=== PATIENT | male | born 1955 | race Caucasian/White ===

== ENCOUNTER 2021-09-06 12:29 | Inpatient (IN) | payer MEDICARE ==
[~2021-09-06] VITALS: Ht 167.6 cm; Wt 82.1 kg
[2021-09-06] VITALS (17 sets, daily range): BP systolic 73–122; BP diastolic 52–86
[2021-09-06 13:23] LABS: BASOPHILS # (AUTO) 0.1 (0.0-0.1); BASOPHILS % 0.6 % (0.0-1.0); EOSINOPHILS # (AUTO) 0.1 (0.0-0.4); EOSINOPHILS % 0.7 % (0.0-6.0); HEMOGLOBIN 15.4 g/dL (14.0-18.0); LYMPHOCYTES # (AUTO) 2.2 (1.0-3.2); LYMPHOCYTES % 18.2 % (18.0-39.1); MEAN CORPUSCULAR HEMOGLOBIN 28.7 pg (28-32); MEAN CORPUSCULAR HGB CONC 32.8 g/dL (31-35); MEAN CORPUSCULAR VOLUME 87.7 fL (81-99); MONOCYTES # (AUTO) 1.4 (0.2-0.8); MONOCYTES % 11.6 % (4.4-11.3); NEUTROPHILS # (AUTO) 8.2 (2.1-6.9); NEUTROPHILS % 68.1 % (38.7-80.0); PLATELET COUNT 166 x10e3/uL (140-360); RED BLOOD COUNT 5.36 x10e6/uL (4.3-5.7); RED CELL DISTRIBUTION WIDTH 13.4 % (11.7-14.4)
[2021-09-06 13:34] LABS: INR 0.96; PROTHROMBIN TIME 13.5 seconds (11.9-14.5)
[2021-09-06 13:35] LABS: PARTIAL THROMBOPLASTIN TIME 26.2 seconds (23.8-35.5)
[2021-09-06 13:44] LABS: ALBUMIN 3.8 g/dL (3.5-5.0); ALBUMIN/GLOBULIN RATIO 1.1 (0.8-2.0); ANION GAP 13.8 mmol/L (8-16); CALCIUM 8.7 mg/dL (8.4-10.2); CREATININE, SERUM 1.08 mg/dL (0.72-1.25); POTASSIUM 4.8 mmol/L (3.5-5.1)
[2021-09-06 13:51] LABS: CREATINE KINASE MB 5.2 ng/mL (0-5.0)
[2021-09-06] MEDS ORDERED: ASPIRIN 81 MG CHEW TAB ONE (14:13)
[2021-09-06] MEDS ORDERED: CLOPIDOGREL BISULFATE 75 MG TAB ONE ×3 (14:13→15:14)
[2021-09-06] MEDS ORDERED: ASPIRIN 81 MG CHEW TAB PO ONE (14:15)
[2021-09-06] MEDS ORDERED: HEPARIN SOD (PORCINE) 1000 UNIT/ML 30ML ONE (14:16)
[2021-09-06] MEDS ORDERED: MIDAZOLAM HCL 2 MG/2 ML VIAL ONE (14:17)
[2021-09-06] MEDS ORDERED: SODIUM CHLORIDE 0.9% 1000ML 1,000 ML ONE (14:17)
[2021-09-06] MEDS ORDERED: IOPAMIDOL 370 MG/ML 200 ML INFUS..BTL INJ ONE (14:17)
[2021-09-06] MEDS ORDERED: LIDOCAINE HCL 2% LOCAL 20 ML VIAL ONE (14:17)
[2021-09-06] MEDS ORDERED: HEPARIN SOD/SOD CHLORIDE 2,000 ML ONE (14:17)
[2021-09-06] MEDS ORDERED: NITROGLYCERIN/D5W 200 MCG/ML 250 ML ONE (14:17)
[2021-09-06] MEDS ORDERED: FENTANYL CITRATE/PF 100MCG/2 ML INJ ONE (14:17)
[2021-09-06] MEDS ORDERED: EPTIFIBATIDE 75mg 100ML 0 ML ONE (14:36)
[2021-09-06] MEDS ORDERED: EPTIFIBATIDE 0 ML ONE (14:36)
[2021-09-06] MEDS ORDERED: SODIUM CHLORIDE 0.9% 50ML 50 ML ONE (14:36)
[2021-09-06] MEDS ORDERED: BIVALRIUDIN 250 MG/VIAL VIAL IV ONE (14:36)
[2021-09-06] MEDS ORDERED: ONDANSETRON HCL INJ 2MG/ML 2ML 2 MG/ML VIAL IV PRN (16:15)
[2021-09-06] MEDS ORDERED: ACETAMINOPHEN 325 MG TAB PO PRN (16:15)
[2021-09-06] MEDS: SODIUM CHLORIDE 0.9% 1000ML 1,000 ML IV SCH (16:23)
[2021-09-06] MEDS: METOPROLOL TARTRATE 25 MG TAB PO SCH (16:25)
[2021-09-06] MEDS ORDERED: GLIMEPIRIDE2 MG PO (16:41)
[2021-09-06] MEDS ORDERED: ATENOLOL50 MG PO (16:41)
[2021-09-06] MEDS ORDERED: ATORVASTATIN CA20 MG PO (16:41)
[2021-09-06] MEDS ORDERED: AMBIEN10 MG PO (16:41)
[2021-09-06] MEDS ORDERED: ABILIFY5 MG PO (16:41)
[2021-09-06] MEDS ORDERED: XANAX0.25 MG PO (16:41)
[2021-09-06] MEDS ORDERED: ZOLOFT100 MG PO (16:41)
[2021-09-06 19:31] LABS: CLARITY,URINE SL CLOUDY (CLEAR); COLOR,URINE AMBER (YELLOW); KETONES,URINE NEGATIVE (NEGATIVE); LEUKOCYTE ESTERASE ,URINE NEGATIVE (NEGATIVE); NITRITE,URINE NEGATIVE (NEGATIVE); PROTEIN,URINE DIPSTICK TRACE (NEGATIVE)
[2021-09-06 19:32] LABS: URINE UROBILINOGEN >=8 mg/dL (0.2 - 1)
[2021-09-06 19:43] LABS: BACTERIA,URINE FEW /HPF; RBC,URINE 0-5 /HPF (0-5); RENAL EPITHELIAL CELLS,URINE RARE; WBC,URINE (MAN) 0-5 /HPF (0-5)
[2021-09-06] MEDS: ATORVASTATIN 40 MG TAB PO SCH (21:00)
[2021-09-06] MEDS ORDERED: ATORVASTATIN 20 MG TAB PO SCH (21:00)
[2021-09-06] MEDS ORDERED: ALPRAZOLAM 0.25 MG TAB PO PRN (21:00)
[2021-09-06] MEDS ORDERED: ZOLPIDEM TARTRATE 10 MG TAB PO PRN (21:00)
[2021-09-06 22:18] LABS: CREATINE KINASE MB 4.4 ng/mL (0-5.0)
[2021-09-07] VITALS (15 sets, daily range): BP systolic 97–139; BP diastolic 66–102
[2021-09-07] MEDS: SODIUM CHLORIDE 0.9% 1000ML 1,000 ML IV SCH (02:15)
[2021-09-07 04:56] LABS: BASOPHILS # (AUTO) 0.1 (0.0-0.1); BASOPHILS % 0.5 % (0.0-1.0); EOSINOPHILS # (AUTO) 0.1 (0.0-0.4); HEMATOCRIT 41.9 % (38.2-49.6); HEMOGLOBIN 14.1 g/dL (14.0-18.0); LYMPHOCYTES # (AUTO) 2.4 (1.0-3.2); LYMPHOCYTES % 25.1 % (18.0-39.1); MEAN CORPUSCULAR HGB CONC 33.7 g/dL (31-35); MEAN CORPUSCULAR VOLUME 86.2 fL (81-99); MONOCYTES % 10.7 % (4.4-11.3); NEUTROPHILS % 61.9 % (38.7-80.0); PLATELET COUNT 137 x10e3/uL (140-360); RED BLOOD COUNT 4.86 x10e6/uL (4.3-5.7); RED CELL DISTRIBUTION WIDTH 13.1 % (11.7-14.4)
[2021-09-07 05:19] LABS: ALBUMIN 3.3 g/dL (3.5-5.0); ANION GAP 15.1 mmol/L (8-16); CALCIUM 8.3 mg/dL (8.4-10.2); CHOL/HDL RATIO 4.3 (3.9-4.7); CREATININE, SERUM 1.05 mg/dL (0.72-1.25); POTASSIUM 4.1 mmol/L (3.5-5.1)
[2021-09-07] MEDS: ARIPIPRAZOLE 5 MG TABLET PO SCH (08:00)
[2021-09-07] MEDS: METOPROLOL TARTRATE 25 MG TAB PO SCH ×2 (08:00→16:15)
[2021-09-07] MEDS: GLIMEPIRIDE 2 MG TAB PO SCH (08:00)
[2021-09-07] MEDS: CLOPIDOGREL BISULFATE 75 MG TAB PO SCH (08:01)
[2021-09-07] MEDS ORDERED: ATENOLOL 50 MG TAB PO SCH (09:00)
[2021-09-07] MEDS: SERTRALINE HCL 100 MG TAB PO SCH (10:58)
[2021-09-07] MEDS ORDERED: DEXTROSE 50% SYRINGE 50 ML IV PRN (18:15)
[2021-09-07] MEDS: INSULIN REGULAR, HUMAN 100 UNIT/1 ML SQ SCH (21:00)
[2021-09-07] MEDS: ATORVASTATIN 40 MG TAB PO SCH (22:17)
[2021-09-08] VITALS: BP 117/56
[2021-09-08 04:00] VITALS: BP 117/70
[2021-09-08] MEDS: INSULIN REGULAR, HUMAN 100 UNIT/1 ML SQ SCH (07:30)
[2021-09-08 07:49] VITALS: BP 128/72
[2021-09-08 08:00] VITALS: BP 128/72
[2021-09-08] MEDS ORDERED: PLAVIX75 MG PO (09:50)
[2021-09-08] MEDS ORDERED: ASPIRIN EC81 MG PO (09:50)
[2021-09-08] MEDS: GLIMEPIRIDE 2 MG TAB PO SCH (10:46)
[2021-09-08] MEDS: SERTRALINE HCL 100 MG TAB PO SCH (10:46)
[2021-09-08] MEDS: CLOPIDOGREL BISULFATE 75 MG TAB PO SCH (10:46)
[2021-09-08] MEDS: METOPROLOL TARTRATE 25 MG TAB PO SCH (10:46)
[2021-09-08] MEDS: ARIPIPRAZOLE 5 MG TABLET PO SCH (10:46)
[2021-09-09] MEDS ORDERED: ASPIRIN 81 MG ENTERIC COATED PO SCH (09:00)
== END 2021-09-08 11:00 | disposition home or self-care (01) | DRG 246 ==
LOC: ER 15:54 → ICU 16:00 → MED/SURG 09-07 17:30
PROVIDERS: ADMIT Internal Medicine; ATTEND Internal Medicine
PROC: 4A023N7 Measurement of Cardiac Sampling and Pressure, Left Heart, Percutaneous Approach (ICD-10-PCS; principal; 2021-09-06)
PROC: 027035Z Dilation of Coronary Artery, One Artery with Two Drug-eluting Intraluminal Devices, Percutaneous Approach (ICD-10-PCS; 2021-09-06)
PROC: 02C03ZZ Extirpation of Matter from Coronary Artery, One Artery, Percutaneous Approach (ICD-10-PCS; 2021-09-06)
PROC: B2111ZZ Fluoroscopy of Multiple Coronary Arteries using Low Osmolar Contrast (ICD-10-PCS; 2021-09-06)
PROC: B2151ZZ Fluoroscopy of Left Heart using Low Osmolar Contrast (ICD-10-PCS; 2021-09-06)
DX: I21.19 ST elevation (STEMI) myocardial infarction involving other coronary artery of inferior wall (principal); I50.21 Acute systolic (congestive) heart failure; G30.0 Alzheimer's disease with early onset; F02.80 Dementia in other diseases classified elsewhere, unspecified severity, without behavioral disturbance, psychotic disturbance, mood disturbance, and anxiety; E11.65 Type 2 diabetes mellitus with hyperglycemia; E78.00 Pure hypercholesterolemia, unspecified; I25.10 Atherosclerotic heart disease of native coronary artery without angina pectoris; I11.0 Hypertensive heart disease with heart failure; Z82.49 Family history of ischemic heart disease and other diseases of the circulatory system; Z20.822 Contact with and (suspected) exposure to COVID-19
CPT/HCPCS: 36415; 70450; 71045; 80053; 80061; 80320; 81001; 82140; 82550; 82553; 82948; 83880; 84484; 85025; 85610; 85730; 87040; 92928; 92973; 93005; 93306; 93458; 99251; 99284; C1725; C1757; C1769; C1874; C1876; C1887; C9600; J0583; J1327; J1644; J1817; J2001; J2250; J3010; J7030; Q9967; U0002

== ENCOUNTER → 2022-02-16 | Day surgery (SDC) | payer MEDICARE ==
[~2022-02-16] MED LIST: ABILIFY5 MG PO; AMBIEN10 MG PO; ASPIRIN EC81 MG PO; ATENOLOL50 MG PO; ATORVASTATIN CA20 MG PO; B&O 60MG R/S 60 MG SUPP PR ONE; CEFTRIAXONE 1 GM VIAL ONE; DEXAMETHASONE SOD PHOS INJ 4 MG/ML SDV ONE; EPHEDRINE SULFATE INJ 50 MG/ML VIAL ONE; FENTANYL CITRATE/PF 100MCG/2 ML INJ ONE; FLOMAX0.4 MG PO; FUROSEMIDE INJ 10 MG/ML 4 ML VIAL ONE; GLIMEPIRIDE2 MG PO; HYDROMORPHONE 2MG/ML 2 MG/ML ML ONE; IOPAMIDOL 610MG/1ML 300 MG/ML VIAL IV ONE; LABETALOL HCL 0 ML ONE; LIDOCAINE HCL 2% LOCAL INJ 5 ML SDV VIAL INJ ONE; LORAZEPAM INJ 2 MG/ML VIAL ONE; METFORMIN HCL500 M2 PO; MIDAZOLAM HCL 2 MG/2 ML VIAL ONE; ONDANSETRON HCL INJ 2MG/ML 2ML 2 MG/ML VIAL ONE; PLAVIX75 MG PO; POVIDONE IODINE 0.05% 0.05 % ML PO ONE; PROPOFOL IV EMULSION 10 MG/ML 20 ML VIAL ONE; SEVOFLURANE INHAL SOLN 250 ML PEN BTL ONE; XANAX0.25 MG PO; ZOLOFT100 MG PO
[2022-02-16 07:24] LABS: BASOPHILS # (AUTO) 0.1 (0.0-0.1); BASOPHILS % 0.9 % (0.0-1.0); EOSINOPHILS # (AUTO) 0.3 (0.0-0.4); EOSINOPHILS % 3.1 % (0.0-6.0); HEMATOCRIT 45.7 % (38.2-49.6); HEMOGLOBIN 15.3 g/dL (14.0-18.0); LYMPHOCYTES # (AUTO) 2.4 (1.0-3.2); LYMPHOCYTES % 29.9 % (18.0-39.1); MEAN CORPUSCULAR HEMOGLOBIN 29.2 pg (28-32); MEAN CORPUSCULAR HGB CONC 33.5 g/dL (31-35); MEAN CORPUSCULAR VOLUME 87.2 fL (81-99); MONOCYTES # (AUTO) 0.6 (0.2-0.8); MONOCYTES % 7.5 % (4.4-11.3); NEUTROPHILS # (AUTO) 4.7 (2.1-6.9); NEUTROPHILS % 57.7 % (38.7-80.0); PLATELET COUNT 162 x10e3/uL (140-360); RED BLOOD COUNT 5.24 x10e6/uL (4.3-5.7); RED CELL DISTRIBUTION WIDTH 12.9 % (11.7-14.4)
[2022-02-16 08:01] LABS: ANION GAP 11.6 mmol/L (8-16); CALCIUM 9.3 mg/dL (8.4-10.2); CREATININE, SERUM 0.96 mg/dL (0.72-1.25); POTASSIUM 4.6 mmol/L (3.5-5.1)
[2022-02-16 12:45] VITALS: BP 150/98
== END | disposition home or self-care (01) ==
LOC: OR 06:29
PROVIDERS: ATTEND Urology
DX: C67.2 Malignant neoplasm of lateral wall of bladder (principal); N40.1 Benign prostatic hyperplasia with lower urinary tract symptoms; N13.8 Other obstructive and reflux uropathy; R35.1 Nocturia; N39.0 Urinary tract infection, site not specified; R80.9 Proteinuria, unspecified; N20.0 Calculus of kidney; N32.89 Other specified disorders of bladder; E11.9 Type 2 diabetes mellitus without complications; I25.2 Old myocardial infarction; R00.1 Bradycardia, unspecified; E78.5 Hyperlipidemia, unspecified; I10 Essential (primary) hypertension; F41.9 Anxiety disorder, unspecified; F32.A Depression, unspecified; Z20.822 Contact with and (suspected) exposure to COVID-19; Z79.82 Long term (current) use of aspirin; Z79.02 Long term (current) use of antithrombotics/antiplatelets; Z79.84 Long term (current) use of oral hypoglycemic drugs; Z79.899 Other long term (current) drug therapy; Z95.5 Presence of coronary angioplasty implant and graft
CPT/HCPCS: 36415; 52240; 71046; 74420; 80048; 82948; 85025; 88307; 93005; C1758; C1769; J0696; J1100; J1170; J1940; J2001; J2060; J2250; J2405; J2704; J3010; Q9967; U0002; 88305

== ENCOUNTER → 2022-04-06 | Day surgery (SDC) | payer MEDICARE ==
[2022-04-05 10:34] LABS: BASOPHILS # (AUTO) 0.1 (0.0-0.1); BASOPHILS % 0.9 % (0.0-1.0); EOSINOPHILS # (AUTO) 0.2 (0.0-0.4); EOSINOPHILS % 2.2 % (0.0-6.0); HEMATOCRIT 47.5 % (38.2-49.6); HEMOGLOBIN 16.1 g/dL (14.0-18.0); LYMPHOCYTES % 33.6 % (18.0-39.1); MEAN CORPUSCULAR HEMOGLOBIN 29.3 pg (28-32); MEAN CORPUSCULAR HGB CONC 33.9 g/dL (31-35); MEAN CORPUSCULAR VOLUME 86.4 fL (81-99); MONOCYTES # (AUTO) 0.6 (0.2-0.8); MONOCYTES % 7.1 % (4.4-11.3); NEUTROPHILS % 55.3 % (38.7-80.0); PLATELET COUNT 182 x10e3/uL (140-360); RED CELL DISTRIBUTION WIDTH 13.2 % (11.7-14.4)
[2022-04-05 10:51] LABS: ALBUMIN 3.9 g/dL (3.5-5.0); ALBUMIN/GLOBULIN RATIO 1.1 (0.8-2.0); ANION GAP 13.7 mmol/L (8-16); CALCIUM 9.3 mg/dL (8.4-10.2); CREATININE, SERUM 1.02 mg/dL (0.72-1.25); POTASSIUM 4.7 mmol/L (3.5-5.1)
[~2022-04-06] MED LIST changes: +ARICEPT5 MG PO; -FUROSEMIDE INJ 10 MG/ML 4 ML VIAL ONE; -HYDROMORPHONE 2MG/ML 2 MG/ML ML ONE; -LABETALOL HCL 0 ML ONE; -LORAZEPAM INJ 2 MG/ML VIAL ONE; +OXYBUTYNIN CHLOR5 MG PO; +PHENAZOPYRIDINE HCL 100 MG TAB ONE
[2022-04-06 10:15] VITALS: BP 126/79
== END | disposition home or self-care (01) ==
LOC: OR 07:27
PROVIDERS: ATTEND Urology
DX: C67.9 Malignant neoplasm of bladder, unspecified (principal); N32.89 Other specified disorders of bladder; N32.81 Overactive bladder; N40.1 Benign prostatic hyperplasia with lower urinary tract symptoms; N13.8 Other obstructive and reflux uropathy; N20.0 Calculus of kidney; E11.9 Type 2 diabetes mellitus without complications; I25.10 Atherosclerotic heart disease of native coronary artery without angina pectoris; I10 Essential (primary) hypertension; E78.5 Hyperlipidemia, unspecified; F41.9 Anxiety disorder, unspecified; F32.A Depression, unspecified; Z01.812 Encounter for preprocedural laboratory examination; Z20.822 Contact with and (suspected) exposure to COVID-19; Z79.82 Long term (current) use of aspirin; Z79.84 Long term (current) use of oral hypoglycemic drugs; Z79.899 Other long term (current) drug therapy; Z95.5 Presence of coronary angioplasty implant and graft
CPT/HCPCS: 0223U; 36415 ×2; 52005; 52214; 74420; 80053; 82948; 85025; 88305; 88342; C1758; J0696; J1100; J2001; J2250; J2405; J2704; J3010; Q9967

== ENCOUNTER → 2023-01-27 | Day surgery (SDC) | payer MEDICARE ==
[2023-01-24 14:58] LABS: BASOPHILS # (AUTO) 0.1 (0.0-0.1); BASOPHILS % 0.8 % (0.0-1.0); EOSINOPHILS # (AUTO) 0.3 (0.0-0.4); EOSINOPHILS % 2.9 % (0.0-6.0); HEMATOCRIT 44.6 % (38.2-49.6); HEMOGLOBIN 15.1 g/dL (14.0-18.0); LYMPHOCYTES # (AUTO) 2.7 (1.0-3.2); MEAN CORPUSCULAR HEMOGLOBIN 29.1 pg (28-32); MEAN CORPUSCULAR HGB CONC 33.9 g/dL (31-35); MEAN CORPUSCULAR VOLUME 85.9 fL (81-99); MONOCYTES # (AUTO) 0.5 (0.2-0.8); MONOCYTES % 5.9 % (4.4-11.3); NEUTROPHILS # (AUTO) 5.4 (2.1-6.9); NEUTROPHILS % 59.8 % (38.7-80.0); PLATELET COUNT 153 x10e3/uL (140-360); RED BLOOD COUNT 5.19 x10e6/uL (4.3-5.7); RED CELL DISTRIBUTION WIDTH 12.9 % (11.7-14.4)
[2023-01-24 15:18] LABS: ALBUMIN 3.9 g/dL (3.5-5.0); ALBUMIN/GLOBULIN RATIO 1.1 (0.8-2.0); ANION GAP 13.3 mmol/L (8-16); CALCIUM 9.5 mg/dL (8.4-10.2); CREATININE, SERUM 1.03 mg/dL (0.72-1.25); POTASSIUM 4.3 mmol/L (3.5-5.1)
[~2023-01-27] MED LIST changes: -B&O 60MG R/S 60 MG SUPP PR ONE; -DEXAMETHASONE SOD PHOS INJ 4 MG/ML SDV ONE; +GLYCOPYRROLATE INJ 0.2 MG/ML VIAL ONE; +LACTATED RINGER'S 1,000 ML ONE; -MIDAZOLAM HCL 2 MG/2 ML VIAL ONE; -PHENAZOPYRIDINE HCL 100 MG TAB ONE; +WELLBUTRIN XL150 MG PO
[2023-01-27 09:25] VITALS: BP 118/70; PULSE 79; RESP 16; O2SAT 95
== END | disposition home or self-care (01) ==
LOC: OR 05:51
PROVIDERS: ATTEND Urology
DX: C67.9 Malignant neoplasm of bladder, unspecified (principal); N40.1 Benign prostatic hyperplasia with lower urinary tract symptoms; N13.8 Other obstructive and reflux uropathy; R39.14 Feeling of incomplete bladder emptying; R35.1 Nocturia; N39.0 Urinary tract infection, site not specified; R80.9 Proteinuria, unspecified; E66.9 Obesity, unspecified; R81 Glycosuria; I10 Essential (primary) hypertension; E11.9 Type 2 diabetes mellitus without complications; E78.00 Pure hypercholesterolemia, unspecified; I25.10 Atherosclerotic heart disease of native coronary artery without angina pectoris; I25.2 Old myocardial infarction; Z01.810 Encounter for preprocedural cardiovascular examination; Z01.812 Encounter for preprocedural laboratory examination; Z01.818 Encounter for other preprocedural examination; Z20.822 Contact with and (suspected) exposure to COVID-19; Z79.84 Long term (current) use of oral hypoglycemic drugs; Z79.899 Other long term (current) drug therapy; Z68.34 Body mass index [BMI] 34.0-34.9, adult; Z95.5 Presence of coronary angioplasty implant and graft
CPT/HCPCS: 0223U; 36415 ×2; 52005; 52235; 71046; 74420; 80053; 82948; 85025; 88307; 93005; C1758; J0696; J2001; J2405; J2704; J3010; J7121; Q9967; 88305

== ENCOUNTER → 2024-03-06 | Day surgery (SDC) | payer MEDICARE ==
[2024-03-05 14:34] LABS: BASOPHILS # (AUTO) 0.1 (0.0-0.1); BASOPHILS % 0.9 % (0.0-1.0); EOSINOPHILS # (AUTO) 0.2 (0.0-0.4); EOSINOPHILS % 2.7 % (0.0-6.0); HEMATOCRIT 42.2 % (38.2-49.6); HEMOGLOBIN 14.6 g/dL (14.0-18.0); MEAN CORPUSCULAR HEMOGLOBIN 28.7 pg (28-32); MEAN CORPUSCULAR HGB CONC 34.6 g/dL (31-35); MEAN CORPUSCULAR VOLUME 83.1 fL (81-99); MONOCYTES # (AUTO) 0.6 (0.2-0.8); MONOCYTES % 6.2 % (4.4-11.3); NEUTROPHILS # (AUTO) 5.1 (2.1-6.9); NEUTROPHILS % 56.6 % (38.7-80.0); PLATELET COUNT 187 x10e3/uL (140-360); RED BLOOD COUNT 5.08 x10e6/uL (4.3-5.7); RED CELL DISTRIBUTION WIDTH 12.9 % (11.7-14.4); WHITE BLOOD COUNT 8.97 x10e3/uL (4.8-10.8)
[2024-03-05 14:45] LABS: ALBUMIN 3.8 g/dL (3.5-5.0); ALBUMIN/GLOBULIN RATIO 1.1 (0.8-2.0); ANION GAP 17.2 mmol/L (8-16); BILIRUBIN,TOTAL 0.7 mg/dL (0.2-1.2); CALCIUM 9.2 mg/dL (8.4-10.2); CREATININE, SERUM 0.86 mg/dL (0.72-1.25); POTASSIUM 4.2 mmol/L (3.5-5.1); TOTAL PROTEIN 7.3 g/dL (6.5-8.1)
[~2024-03-06] MED LIST changes: -CEFTRIAXONE 1 GM VIAL ONE; +DEXAMETHASONE SOD PHOS INJ 4 MG/ML SDV ONE; -EPHEDRINE SULFATE INJ 50 MG/ML VIAL ONE; -LACTATED RINGER'S 1,000 ML ONE; +METFORMIN HCL500 MG PO; +NEOSTIGMINE 1 MG/ML 10ML VIAL ONE; +PHENYLEPHRINE HCL 1% 10 MG/ML VIAL ONE; -POVIDONE IODINE 0.05% 0.05 % ML PO ONE; +ROCURONIUM BROMIDE 10 MG/ML 5ML VIAL IV ONE; +Sodium Chloride 0.9% 50ML Bag ONE
[2024-03-06] MEDS: SODIUM CHLORIDE 0.9% 1000ML 1,000 ML ONE (07:23)
[2024-03-06] MEDS: CEFTRIAXONE 1 GM VIAL ONE (07:24)
[2024-03-06] MEDS: PHENAZOPYRIDINE HCL 100 MG TAB ONE (10:25)
[2024-03-06 10:45] VITALS: BP 117/76; PULSE 89; RESP 16; O2SAT 95
== END | disposition home or self-care (01) ==
LOC: OR 06:55
PROVIDERS: ATTEND Urology
DX: C67.9 Malignant neoplasm of bladder, unspecified (principal); N30.80 Other cystitis without hematuria; R31.29 Other microscopic hematuria; N40.0 Benign prostatic hyperplasia without lower urinary tract symptoms; N32.89 Other specified disorders of bladder; I10 Essential (primary) hypertension; E78.5 Hyperlipidemia, unspecified; I25.2 Old myocardial infarction; E11.9 Type 2 diabetes mellitus without complications; E66.01 Morbid (severe) obesity due to excess calories; F03.90 Unspecified dementia, unspecified severity, without behavioral disturbance, psychotic disturbance, mood disturbance, and anxiety; F41.9 Anxiety disorder, unspecified; F32.A Depression, unspecified; Z01.810 Encounter for preprocedural cardiovascular examination; Z01.812 Encounter for preprocedural laboratory examination; Z79.84 Long term (current) use of oral hypoglycemic drugs; Z79.899 Other long term (current) drug therapy
CPT/HCPCS: 36415; 74420; 80053; 85025; 88305; 93005; C1758; J0696; J1100; J2001; J2371; J2405; J2710; J7030